=== PATIENT | male | born 1970 | race Caucasian/White ===

== ENCOUNTER 2016-03-28 01:09 | Emergency (ER) | payer OTHER ==
[~2016-03-28] VITALS: Ht 185.4 cm; Wt 84.1 kg
[2016-03-28 01:27] VITALS: TEMP 36.4; Ht 185.4 cm; Wt 84.1 kg
[2016-03-28] MEDS ORDERED: ONDANSETRON INJ 2 MG/ML 2 ML VIAL IV STA (01:55)
[2016-03-28] MEDS ORDERED: LIDOCAINE HCL 2% VISC SOLN 20 ML UDC PO STA (01:55)
[2016-03-28] MEDS ORDERED: SODIUM CHLORIDE 0.9% 1000ML 1,000 ML IV STA (01:55)
[2016-03-28] MEDS ORDERED: ALUMINUM/MAGNESIUM SUSP 30 ML UDC PO STA (01:55)
[2016-03-28] MEDS ORDERED: DEXAMETHASONE SOD INJ 10 MG/ML VIAL IV ONE (02:00)
[2016-03-28] MEDS ORDERED: OPTIRAY 320 IV PRN (02:15)
[2016-03-28 02:23] VITALS: O2SAT 99
[2016-03-28 02:23] LABS: BASO % 0.3 %; BASO ABS # 0.01 K/uL (0-0.2); COMPLETE YES; EOS % 6.9 %; HEMATOCRIT 39.3 % (42-52); IG% 0.3 %; LYMPH % 38.2 %; LYMPH ABS # 1.39 K/uL (1.2-3.4); MEAN CELL VOLUME 86.2 fL (80-100); MEAN CORPUSCULAR HEMOGLOBIN 31.1 pg (25-34); MEAN CORPUSCULAR HGB CONC 36.1 g/dl (32-36); MONO % 11.5 %; NEUT % 42.8 %; PLATELET COUNT 156 K/uL (130-400); RED BLOOD COUNT 4.56 M/uL (4.7-6.1); WHITE BLOOD COUNT 3.64 K/uL (4.8-10.8)
[2016-03-28 02:46] LABS: ALT/SGPT 24 U/L (12-78); AST/SGOT 16 U/L (15-37); BLOOD UREA NITROGEN 13 mg/dl (7-18); CALCIUM 8.2 mg/dl (8.5-10.1); CARBON DIOXIDE 25 mmol/L (21-32); CHLORIDE 106 mmol/L (98-107); CREATININE 0.79 mg/dl (0.60-1.40); GLUCOSE 98 mg/dl (70-99); POTASSIUM 3.8 mmol/L (3.5-5.1); SODIUM 141 mmol/L (136-145)
[2016-03-28 02:51] LABS: ALKALINE PHOSPHATASE 53 U/L (45-117); CKMB/CK RATIO 0.6 (0-3.0)
[2016-03-28] MEDS ORDERED: ALBUTEROL HFA 8 GM INHALER INH STA (04:29)
[2016-03-28 04:30] VITALS: BP 99/53; PULSE 54; O2SAT 96
[2016-03-28] MEDS ORDERED: AMOXICIL/CLAVU 875MG HOME PACK PO ONE (04:30)
[2016-03-28] MEDS ORDERED: AMOX875T PO (04:34)
[2016-03-28] MEDS ORDERED: PRED50TA PO (04:34)
--- NOTE | 2016-03-28 04:46 | EMERGENCY ROOM VISIT NOTE ---
History First contact with patient: 01:45 Chief Complaint: FLU LIKE SX Stated Complaint: FEVER,VOMITING,EXTREME THROAT PAIN,WEAK ETC History of Present Illness The patient is a 45 year old male who presents to the Emergency Room with complaints of sore throat, fever, chills, cough, congestion, sinus pain for the past week. Patient also complains of right wrist and hand pain and tingling for the past several months. Patient does not routinely see a doctor. He is worried that he has throat cancer as he smokes. His father had throat cancer. He wants to be checked for this. No temperature was taken. Patient is tolerating by mouth fluids and food. Patient denies headache, neck stiffness, abdominal pain, chest pain, dyspnea, vomiting, diarrhea, leg pain or swelling, numbness, tingling. Review of Systems See HPI for pertinent positives & negatives. A total of 10 systems reviewed and were otherwise negative. Past Medical/Surgical History none Social History Smoking Status: Current Every Day Smoker Alcohol Use: occasionally Drug Use: none Housing Status: lives with family Occupation Status: employed Current/Historical Medications Scheduled Amoxicillin & Pot Clavulanate (Augmentin 875-125 mg), 1 TAB PO BID Prednisone (Prednisone), 50 MG PO DAILY Allergies Coded Allergies: No Known Allergies (Unverified , 03/28/16) Physical Exam Vital Signs Date Time Temp Pulse Resp B/P Pulse Ox O2 Delivery O2 Flow Rate FiO2 03/28/16 04:30 54 18 99/53 96 Room Air 03/28/16 03:03 58 18 99/54 96 Room Air 03/28/16 02:23 99 Room Air 03/28/16 01:27 36.4 70 18 119/64 98 Room Air Physical Exam VITALS: Vitals are noted on the nurse's note and reviewed by myself. Vital signs stable. GENERAL: Pleasant male, in no acute distress, nondiaphoretic, well-developed well-nourished. SKIN: The skin was without rashes, erythema, edema, or bruising. There is no tenting of the skin. Capillary reflex less than 2 seconds. HEAD: Normocephalic atraumatic. EARS: External auditory canals clear, tympanic membranes pearly cheek without erythema or effusion bilaterally. EYES: Pupils equal round and reactive to light and accommodation. Conjunctivae without injection, sclerae without icterus. Extraocular movements intact. NOSE: Patent, turbinates without inflammation or discharge. Maxillary sinus tenderness. MOUTH: Mucous membranes moist. Pharynx without erythema or exudate. Uvula midline. Airway patent. Tongue does not deviate. NECK: Supple without nuchal rigidity. No lymphadenopathy. No thyromegaly. Cervical spine is nontender. No JVD. No meningeal signs HEART: Regular rate and rhythm without murmurs gallops or rubs. LUNGS: Clear to auscultation bilaterally without wheezes, rales or rhonchi. No dullness to percussion. No retractions or accessory muscle use. ABDOMEN: Positive bowel sounds x 4. Normal tympanic percussion. Soft, nontender, without masses or organomegaly. Serrano sign negative. No guarding or rebound tenderness. MUSCULOSKELETAL: No muscle atrophy, erythema, or edema noted. Right wrist with positive Tinel sign. Right wrist full range of motion. Right hand full range of motion with sensation intact. Radial pulses +2 equal present bilaterally NEURO: Patient was alert and oriented to person place and time. Normal sensation to light and sharp touch. No focal neurological deficits. Medical Decision & Procedures Laboratory Results 03/28/16 02:10 Red Blood Count 4.56, Mean Corpuscular Volume 86.2, Mean Corpuscular Hemoglobin 31.1, Mean Corpuscular Hemoglobin Concent 36.1, Mean Platelet Volume 11.0, Neutrophils (%) (Auto) 42.8, Lymphocytes (%) (Auto) 38.2, Monocytes (%) (Auto) 11.5, Eosinophils (%) (Auto) 6.9, Basophils (%) (Auto) 0.3, Neutrophils # (Auto ) 1.56, Lymphocytes # (Auto) 1.39, Monocytes # (Auto) 0.42, Eosinophils # (Auto ) 0.25, Basophils # (Auto) 0.01 03/28/16 02:10 Test 03/28/16 01:50 03/28/16 02:10 Influenza Type A Antigen Neg for Influ A (NEG) Influenza Type B Antigen Neg for Influ B (NEG) White Blood Count 3.64 K/uL (4.8-10.8) Red Blood Count 4.56 M/uL (4.7-6.1) Hemoglobin 14.2 g/dL (14.0-18.0) Hematocrit 39.3 % (42-52) Mean Corpuscular Volume 86.2 fL (80-100) Mean Corpuscular Hemoglobin 31.1 pg (25-34) Mean Corpuscular Hemoglobin Concent 36.1 g/dl (32-36) Platelet Count 156 K/uL (130-400) Mean Platelet Volume 11.0 fL (7.4-10.4) Neutrophils (%) (Auto) 42.8 % Lymphocytes (%) (Auto) 38.2 % Monocytes (%) (Auto) 11.5 % Eosinophils (%) (Auto) 6.9 % Basophils (%) (Auto) 0.3 % Neutrophils # (Auto) 1.56 K/uL (1.4-6.5) Lymphocytes # (Auto) 1.39 K/uL (1.2-3.4) Monocytes # (Auto) 0.42 K/uL (0.11-0.59) Eosinophils # (Auto) 0.25 K/uL (0-0.5) Basophils # (Auto) 0.01 K/uL (0-0.2) RDW Standard Deviation 42.2 fL (36.4-46.3) RDW Coefficient of Variation 13.3 % (11.5-14.5) Immature Granulocyte % (Auto) 0.3 % Immature Granulocyte # (Auto) 0.01 K/uL (0.00-0.02) Anion Gap 10.0 mmol/L (3-11) Est Creatinine Clear Calc Drug Dose 132.0 ml/min Estimated GFR () 124.8 Estimated GFR (Non- 107.7 BUN/Creatinine Ratio 17.0 (10-20) Calcium Level 8.2 mg/dl (8.5-10.1) Total Bilirubin 0.3 mg/dl (0.2-1) Direct Bilirubin < 0.1 mg/dl (0-0.2) Aspartate Amino Transf (AST/SGOT) 16 U/L (15-37) Alanine Aminotransferase (ALT/SGPT) 24 U/L (12-78) Alkaline Phosphatase 53 U/L (45-117) Total Creatine Kinase 103 U/L (39-308) Creatine Kinase MB 0.6 ng/ml (0.5-3.6) Creatine Kinase MB Ratio 0.6 (0-3.0) Troponin I < 0.015 ng/ml (0-0.045) Total Protein 6.5 gm/dl (6.4-8.2) Albumin 3.8 gm/dl (3.4-5.0) Lipase 52 U/L (73-393) Medications Administered Medications (Trade) Dose Ordered Sig/Lauri Route Start Time Stop Time Status Last Admin Dose Admin Lidocaine HCl (Viscous Lidocaine 2% Soln) 10 ml NOW STAT PO 03/28/16 01:55 03/28/16 01:58 DC 03/28/16 02:18 10 ML Al Hydroxide/Mg Hydroxide 30 ml 30 ml NOW STAT PO 03/28/16 01:55 03/28/16 01:58 DC 03/28/16 02:17 30 ML Sodium Chloride (Nss 1000ml) 1,000 ml @ 999 mls/hr Q1H1M STAT IV 03/28/16 01:55 03/28/16 02:55 DC 03/28/16 02:17 999 MLS/HR Ondansetron HCl (Zofran Inj) 4 mg NOW STAT IV 03/28/16 01:55 03/28/16 01:58 DC 03/28/16 02:17 4 MG Dexamethasone Sodium Phosphate (Decadron Inj) 10 mg NOW ONCE IV 03/28/16 02:00 03/28/16 02:01 DC 03/28/16 02:17 10 MG ED Course Prior records/ancillary studies reviewed. Triage Nursing notes reviewed. Additional history obtained from family. The patient's history was concerning for a sore throat. Differential diagnosis: Etiologies such as viral syndrome, tonsillitis, streptococcal pharyngitis, mononucleosis, peritonsillar abscess, retropharyngeal abscess, otitis, pneumonia , influenza, as well as others were entertained. ER treatment provided: GI cocktail, Augmentin, albuterol On reassessment the patient felt better. Diagnostics interpreted by me: The labs revealed no worrisome leukocytosis or electrolyte abnormality Imaging studies: Chest x-ray with no acute consolidation or pneumothorax or free air per my interpretation CT of the neck was read by stat radiology and concerning for sinusitis. Patient was placed in a wrist cock-up splint and neurovascular status was rechecked after placement and is intact. This appears to be consistent with sinusitis and right carpal tunnel syndrome. Patient had no signs of meningitis. He was well-appearing. Negative flu. He was strongly encouraged to quit smoking. He is advised follow-up family medicine in a few days or here in the ER sooner for high fevers, lethargy, neck stiffness, worsening signs or symptoms or as needed. He had a negative strep test. He was started on antibiotics.. By the evaluation outlined above emergent etiologies such as peritonsillar abscess, retropharyngeal abscess, otitis, pneumonia, meningitis, urinary tract infection, sepsis, bacteremia, as well as others were deemed relatively unlikely. The pt informed about the findings as listed above. All questions were answered and pleased with the treatment. Return instructions were outlined and the patient was discharged in stable condition. Outpatient prescription management: Augmentin Referral: The patient was referred back to their primary care physician for follow-up in 2 to 3 days for a recheck of the current condition. Case reviewed by attending Medical Decision As above Impression Primary Impression: Sinusitis, acute Additional Impression: Carpal tunnel syndrome of right wrist Departure Information Dispostion Home / Self-Care Condition GOOD Prescriptions Prednisone (Prednisone) 50 Mg Tab 50 MG PO DAILY for 4 Days, #4 TAB Prov: Lisa Maria .TEJ 03/28/16 Amoxicillin & Pot Clavulanate (Augmentin 875-125 mg) 1 Tab Tab 1 TAB PO BID for 9 Days, #18 TAB Prov: Lisa Maria PA-C 03/28/16 Forms HOME CARE DOCUMENTATION FORM, Work Instructions, Return To Work: 2 days IMPORTANT VISIT INFORMATION Patient Instructions [facility], ED Carpal Tunnel, ED Sinusitis Abx Tx Additional Instructions Amoxicillin Clavulanate (Augmentin) 875mg: Take one pill twice daily for 10 days for your infection. All antibiotics can cause diarrhea. If this occurs and you feel worse or it does not resolve in 1-2 days follow up with your doctor or return to the Emergency Department as this could be signs of serious underlying problems. Any medication can cause an allergic reaction, stop the pills immediately and return to the ER for rash, hives, breathing difficulties, or swelling. Albuterol Inhaler: Take 2 puffs four times daily for five days, then as needed. Prednisone 50mg: Once daily until the prescription is finished. It is best to take this earlier in the day as some patients note occasional difficulty falling asleep when taken in the late evening. Wear wrist cock-up splint for comfort. Acetaminophen(Tylenol) may be used for fever or pain. Use 1000mg every six hours as needed. Avoid using more than 3000mg in a 24 hour period. (AND/OR) Ibuprofen(Motrin, Advil) may be used for fever or pain. Use 600mg every six hours as needed. Take with food. Avoid using more than 2400mg in a 24 hour period. Do not use 2400mg per day for more than three consecutive days without physician direction. Prolonged inappropriate use can lead to stomach upset or ulcers. Rest and drink plenty of fluids. Avoid smoke/smoking, fumes, dust, or any triggers in the past that may have affected your breathing. Continue current medications. Return to the ER for chest pain, difficulty breathing, fevers, vomiting, worsening of your condition, or as needed. Follow up with your primary physician this week for a recheck of your current condition. Work Instructions Return To Work: 2 days Problem Qualifiers Primary Impression: Sinusitis, acute Sinusitis location: maxillary Recurrence: non-recurrent Qualified Codes: J01.00 - Acute maxillary sinusitis, unspecified
--- NOTE | 2016-03-28 08:43 | DIAGNOSTIC IMAGING REPORT ---
CT SCAN OF THE NECK WITH IV CONTRAST CLINICAL HISTORY: Dysphagia. Reported family history of throat cancer. COMPARISON STUDY: No priors. TECHNIQUE: Following the IV administration of 94 cc of Optiray 320, CT scan of the soft tissues of the neck was performed from the skull base to the upper chest. Images are reviewed in the axial, sagittal, and coronal planes. IV contrast was administered without complication. CT DOSE: 663.97 mGy.cm FINDINGS: Pharynx: There is mild thickening and edema involving the soft tissues of the laryngopharynx. The oropharynx and nasopharynx are normal in appearance. The pharyngeal airway is patent. There is no clear evidence of mass lesion. The vocal cords are symmetric. The parapharyngeal fat is preserved. No organized fluid collection is seen to indicate abscess. The prevertebral/retropharyngeal soft tissues are within normal limits. The epiglottis is normal. Numerous calcified tonsilliths are identified. Lymphadenopathy: There are shotty cervical lymph nodes. These are not pathologically enlarged by size criteria. Thyroid: Normal in size and attenuation. Salivary glands: The parotid and submandibular glands are within normal limits. Brain parenchyma: The visualized brain parenchyma at the skull base is normal in appearance. Vascular structures: The internal carotid arteries and jugular veins are widely patent. Skeletal structures: Imaged portions of the calvarium at the skull base are within normal limits. The cervical spine appears intact noting mild spondylotic change.. Orbits: The bony orbits are intact. Orbital contents are normal as visualized. Sinuses and mastoids: There is near complete opacification of the ethmoid sinuses. Moderate mucosal thickening is seen within the frontal and maxillary sinuses. Trace mucosal thickening is seen in the sphenoid sinuses. The mastoid air cells are well pneumatized. Dentition: Scattered dental caries are observed. No large periapical lucencies are identified. Lung apices: Emphysema is noted at the lung apices. There is mild apical scarring. The imaged upper lobe lung parenchyma is otherwise clear. Mild peribronchial thickening is observed. IMPRESSION: 1. There is mild edema and thickening of the soft tissues in the laryngopharynx. This is nonspecific and likely represents a mild pharyngitis. Consider follow-up with Otolaryngology if this fails to resolve given the reported family history of throat cancer. 2. There is no organized fluid collection to suggest abscess. The parapharyngeal fat is well maintained. 3. There are shotty cervical lymph nodes which are not pathologically enlarged by size criteria. 4. Emphysema. 5. Significant paranasal sinus disease as above. 6. There are scattered dental caries. Follow-up with dentistry is recommended. Electronically signed by: Denis Chase M.D. 03/28/2016 8:41 AM Dictated Date/Time: 03/28/2016 8:26 AM
--- NOTE | 2016-03-28 09:56 | DIAGNOSTIC IMAGING REPORT ---
SINGLE VIEW CHEST CLINICAL HISTORY: Atypical chest pain. FINDINGS: An AP, portable, upright chest radiograph is obtained. No prior studies are available for comparison at the time of dictation. The examination is degraded by portable technique and patient rotation. The heart appears mildly enlarged. There is examined change and nonspecific interstitial thickening. No airspace consolidation or pleural effusion is identified. No pneumothorax is seen. The bony thorax is grossly intact. IMPRESSION: Mild cardiac enlargement and emphysema. No acute cardiopulmonary abnormality is seen. Electronically signed by: Denis Chase M.D. 03/28/2016 9:54 AM Dictated Date/Time: 03/28/2016 9:53 AM
== END 2016-03-28 04:44 | disposition home or self-care (01) ==
LOC: C.EDB 01:12 → C.EDC 04:44
DX: J01.90 Acute sinusitis, unspecified (principal); G56.01 Carpal tunnel syndrome, right upper limb; F17.200 Nicotine dependence, unspecified, uncomplicated

== ENCOUNTER 2017-04-03 22:12 | Emergency (ER) | payer SELFPAY ==
[~2017-04-03] VITALS: Ht 185.4 cm; Wt 76.8 kg
[2017-04-03 22:29] VITALS: BP 115/71; PULSE 84; TEMP 36.8; O2SAT 97; Ht 185.4 cm; Wt 76.8 kg
== END 2017-04-03 22:40 | disposition left against medical advice (07) ==
LOC: C.EDB 22:13

== ENCOUNTER 2017-04-07 12:00 | Emergency (ER) | payer OTHER ==
[~2017-04-07] VITALS: Ht 185.4 cm; Wt 76.2 kg
[2017-04-07 12:06] VITALS: TEMP 36.6; Ht 185.4 cm; Wt 76.2 kg
[2017-04-07] MEDS ORDERED: SODIUM CHLORIDE 0.9% 1000ML 1,000 ML IV STA (12:31)
--- NOTE | 2017-04-07 12:38 | EMERGENCY ROOM VISIT NOTE ---
History Report prepared by Lyn: Toñito Pham Under the Supervision of: Dr. Matt Talamantes M.D. First contact with patient: 12:28 Chief Complaint: GROIN PAIN Stated Complaint: PAIN IN GROIN, DOWN LEGS, BLOOD IN STOOL History of Present Illness The patient is a 46 year old male who presents to the Emergency Room with complaints of sharp intermittent groin pain that has been present for the past 4 weeks. He denies pain in his testicles currently but states that they are swollen. He states that this pain radiates into his lower extremities. He denies fevers, chills, cough, congestion, nausea, vomiting, diarrhea, dysuria, and hematuria. He states he has had blood in his stool a few days ago but is now resolved. He denies previous episodes and states he does not have a PCP. Source of History: patient Onset: 4 weeks Position: other (groin ) Quality: sharp Timing: intermittent Associated Symptoms: No fevers, No chills, No cough, No nausea, No vomiting , No diarrhea, No urinary symptoms Review of Systems See HPI for pertinent positives and negatives. A total of ten systems were reviewed and were otherwise negative. 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 Oropharynx unremarkable. EYES: Normal conjunctiva. Sclera non-icteric. NECK: Supple. No nuchal rigidity. FROM. No JVD. RESPIRATORY: Clear to auscultation. CARDIAC: Regular rate, normal rhythm. Extremities warm and well perfused. Pulses equal. ABDOMEN: Soft, non-distended. No tenderness to palpation. No rebound or guarding. No masses. RECTAL: No hemorrhoids. No stool or blood. No significant prostate enlargement. : Normal external genitalia. No ttp. Cremasteric reflex intact. MUSCULOSKELETAL: Chest examination reveals no tenderness. The back is symmetrical on inspection without obvious abnormality. There is no CVA tenderness to palpation. No joint edema. LOWER EXTREMITIES: Calves are equal size bilaterally and non-tender. No edema. No discoloration. NEURO: Normal sensorium. No sensory or motor deficits noted. SKIN: No rash or jaundice noted. Medical Decision & Procedures ER Provider Diagnostic Interpretation: Radiology results as stated below per my review and radiologist interpretation: CT SCAN OF THE ABDOMEN AND PELVIS WITH IV CONTRAST CLINICAL HISTORY: Lower abdominal pain. COMPARISON STUDY: No priors. TECHNIQUE: Following the IV administration of 119 cc of Optiray 320, CT scan of the abdomen and pelvis is performed from the lung bases to the proximal femora. Images are reviewed in the axial, sagittal, and coronal planes. IV contrast was administered without complication. A dose lowering technique was utilized adhering to the principles of ALARA. CT DOSE: 482.00 mGycm FINDINGS: Lung bases: The heart is normal in size and without pericardial effusion. Atelectasis is present in the medial segment of the right middle lobe. A fat-containing Bochdalek hernia is seen at the right lung base. There is a small fat-containing Morgagni hernia suggested at the anterior right lung base. The lung bases are otherwise clear. Liver: The contrast-enhanced liver is normal in size, contour, and attenuation. There is no intrahepatic biliary ductal dilatation. The hepatic veins and portal veins are patent. Gallbladder: Unremarkable. Spleen: Normal in size and attenuation. Pancreas: Unremarkable. Adrenal glands: Unremarkable. Kidneys: The contrast enhanced kidneys are normal in size and without hydronephrosis. The kidneys enhance symmetrically. There are numerous small bilateral nonobstructing renal calculi. Abdominal vasculature: The abdominal aorta is normal in course and caliber noting mild atherosclerotic calcification. Bowel: Mild rectal wall thickening suggested. No bowel obstruction is seen. The appendix is not identified and reported surgically absent. Peritoneum: There is no intraperitoneal free air or abdominal ascites. Lymphadenopathy: None. Pelvic viscera: The bladder, prostate, and seminal vesicles are normal as visualized. Skeletal structures: No lytic or blastic lesions are seen. IMPRESSION: 1. Mild rectal wall thickening and edema is suggested. Correlate clinically for evidence of proctitis. 2. There are numerous bilateral nonobstructing renal calculi. 3. Additional findings as above. Electronically signed by: Denis Chase M.D. 04/07/2017 2:21 PM Dictated Date/Time: 04/07/2017 2:15 PM ULTRASOUND TESTES AND SCROTUM CLINICAL HISTORY: Right scrotal pain. COMPARISON STUDY: No priors. TECHNIQUE: Real-time, grayscale, and color Doppler sonography of the testes and scrotum is performed. Images are reviewed in the transverse and longitudinal planes. FINDINGS: The testes are normal in size and homogeneous in echotexture. The right testis measures 4.8 x 2.5 x 3.3 cm and the left testis measures 4.1 x 2.6 x 2.6 cm. No intratesticular mass is seen. Testicular blood flow is normal and symmetric. Normal Doppler waveforms are identified in both testes. The epididymal heads are normal in appearance. The right epididymal head measures 1.1 cm in length and the left epididymal head measures 1.6 cm in length. There are subcentimeter bilateral epididymal head cysts. There are small bilateral varicoceles. Small bilateral hydroceles are also noted. IMPRESSION: 1. Unremarkable sonographic appearance of the testes. 2. Small bilateral hydroceles are noted. 3. There are small bilateral varicoceles. Electronically signed by: Denis Chase M.D. 04/07/2017 3:20 PM Dictated Date/Time: 04/07/2017 3:19 PM Laboratory Results 04/07/17 12:56 Red Blood Count 4.74, Mean Corpuscular Volume 88.8, Mean Corpuscular Hemoglobin 31.2, Mean Corpuscular Hemoglobin Concent 35.2, Mean Platelet Volume 10.2, Neutrophils (%) (Auto) 50.7, Lymphocytes (%) (Auto) 37.2, Monocytes (%) (Auto) 6.7, Eosinophils (%) (Auto) 4.8, Basophils (%) (Auto) 0.3, Neutrophils # (Auto) 3.49, Lymphocytes # (Auto) 2.56, Monocytes # (Auto) 0.46, Eosinophils # (Auto) 0.33, Basophils # (Auto) 0.02 04/07/17 12:56 Test 04/07/17 12:56 04/07/17 13:00 White Blood Count 6.88 K/uL (4.8-10.8) Red Blood Count 4.74 M/uL (4.7-6.1) Hemoglobin 14.8 g/dL (14.0-18.0) Hematocrit 42.1 % (42-52) Mean Corpuscular Volume 88.8 fL (80-100) Mean Corpuscular Hemoglobin 31.2 pg (25-34) Mean Corpuscular Hemoglobin Concent 35.2 g/dl (32-36) Platelet Count 240 K/uL (130-400) Mean Platelet Volume 10.2 fL (7.4-10.4) Neutrophils (%) (Auto) 50.7 % Lymphocytes (%) (Auto) 37.2 % Monocytes (%) (Auto) 6.7 % Eosinophils (%) (Auto) 4.8 % Basophils (%) (Auto) 0.3 % Neutrophils # (Auto) 3.49 K/uL (1.4-6.5) Lymphocytes # (Auto) 2.56 K/uL (1.2-3.4) Monocytes # (Auto) 0.46 K/uL (0.11-0.59) Eosinophils # (Auto) 0.33 K/uL (0-0.5) Basophils # (Auto) 0.02 K/uL (0-0.2) RDW Standard Deviation 44.1 fL (36.4-46.3) RDW Coefficient of Variation 13.5 % (11.5-14.5) Immature Granulocyte % (Auto) 0.3 % Immature Granulocyte # (Auto) 0.02 K/uL (0.00-0.02) Anion Gap 4.0 mmol/L (3-11) Est Creatinine Clear Calc Drug Dose 113.1 ml/min Estimated GFR () 119.1 Estimated GFR (Non- 102.8 BUN/Creatinine Ratio 18.7 (10-20) Calcium Level 9.1 mg/dl (8.5-10.1) Total Bilirubin 0.4 mg/dl (0.2-1) Direct Bilirubin < 0.1 mg/dl (0-0.2) Aspartate Amino Transf (AST/SGOT) 18 U/L (15-37) Alanine Aminotransferase (ALT/SGPT) 29 U/L (12-78) Alkaline Phosphatase 58 U/L (45-117) Total Protein 7.4 gm/dl (6.4-8.2) Albumin 4.0 gm/dl (3.4-5.0) Lipase 75 U/L (73-393) Urine Color YELLOW Urine Appearance CLEAR (CLEAR) Urine pH 5.0 (4.5-7.5) Urine Specific [place] 1.027 (1.000-1.030) Urine Protein NEG (NEG) Urine Glucose (UA) NEG (NEG) Urine Ketones NEG (NEG) Urine Occult Blood NEG (NEG) Urine Nitrite NEG (NEG) Urine Bilirubin NEG (NEG) Urine Urobilinogen NEG (NEG) Urine Leukocyte Esterase NEG (NEG) Laboratory results reviewed by me Medications Administered Medications (Trade) Dose Ordered Sig/Lauri Route Start Time Stop Time Status Last Admin Dose Admin Sodium Chloride 1,000 ml @ 999 mls/hr Q1H1M STAT IV 04/07/17 12:31 04/07/17 13:31 DC 04/07/17 12:31 999 MLS/HR ED Course 1228: The patient was evaluated in room B11B. A complete history and physical exam was performed. 1630: I reevaluated the patient. Discussed results and discharge instructions: He verbalized understanding and agreement. The patient is ready for discharge. Medical Decision I reviewed the patient's past medical history, medications, and the nursing notes as described above. The patient's presentation and history were concerning for etiologies such as appendicitis, diverticulitis, PUD, biliary pathology, UTI, pancreatitis, obstruction, mesenteric ischemia, aortic pathology, infections, inflammatory bowel disease, renal colic, testicular torsion, epididymitis as well as others were entertained. The patient is a 46-year-old gentleman who does not follow regularly with a medical provider presents emergency Department with complaints of intermittent lower abdominal pain and testicular pain for the past 4 weeks and scant blood per rectum several days prior to arrival per [facility]. On arrival the patient is in no acute distress, afebrile stable vital signs. exam unremarkable. No ttp. Cremasteric reflex intact. Rectal exam with no stool or blood. Labs unremarkable including WBC and CMP within normal limits. UA negative. Testicular ultrasound demonstrating bilateral small hydroceles and varicoceles but otherwise no evidence of infection. CT scan demonstrates findings suspicious for proctitis. Given the patient's recent blood per rectum and vague lower abdominal complaints proctitis is likely. Given that the patient does not appear particularly uncomfortable plan for symptomatic treatment with stool softener and GI follow-up. Patient also encouraged to establish care with a PCP. Findings and plan for follow-up reviewed with patient. Patient agreeable and d/c'd per discharge instructions. Medication Reconcilliation Current Medication List: was personally reviewed by me Blood Pressure Screening Patient's blood pressure: Normal blood pressure Blood pressure disposition: Did not require urgent referral Impression Primary Impression: Proctitis Additional Impressions: Hydrocele, bilateral Bilateral varicoceles Scribe Attestation The scribe's documentation has been prepared under my direction and personally reviewed by me in its entirety. I confirm that the note above accurately reflects all work, treatment, procedures, and medical decision making performed by me. Departure Information Dispostion Home / Self-Care Prescriptions Docusate Sodium (COLACE) 100 Mg Cap 1 CAP PO BID for 15 Days, #30 CAP Prov: Matt Talamantes M.D. 04/07/17 Referrals No Doctor, Assigned (PCP) Jessica Herring, DO Patient Instructions Bleeding Rectal, ED Colitis Ulcerative, ED Hydrocele Type Not Specified, ED Varicocele, My [facility] Additional Instructions Please follow up with and establish care with a primary care physician and also follow up with gastroenterology, Dr. Herring, in the next week for re-evaluation. Your symptoms are most likely due to a proctitis. You also were found to have bilateral testicular hydroceles and varicoceles, which can sometimes cause pain. Where supportive underwear to minimize these symptoms. Otherwise, your exam, lab results, testicular ultrasound, and CT scan did not show signs of an emergent condition at this time. Acetaminophen for pain as needed. Colace for stool softening to minimize pain. Drink plenty of fluids to ensure hydration. Return to the emergency department for worsening symptoms as described in the accompanying instructions. Problem Qualifiers
[2017-04-07] MEDS ORDERED: OPTIRAY 320 IV PRN ×2 (12:45)
[2017-04-07 13:06] LABS: BASO % 0.3 %; BASO ABS # 0.02 K/uL (0-0.2); EOS % 4.8 %; EOS ABS # 0.33 K/uL (0-0.5); HEMATOCRIT 42.1 % (42-52); HEMOGLOBIN 14.8 g/dL (14.0-18.0); IG# 0.02 K/uL (0.00-0.02); LYMPH % 37.2 %; LYMPH ABS # 2.56 K/uL (1.2-3.4); MEAN CELL VOLUME 88.8 fL (80-100); MEAN CORPUSCULAR HEMOGLOBIN 31.2 pg (25-34); MEAN CORPUSCULAR HGB CONC 35.2 g/dl (32-36); MEAN PLATELET VOLUME 10.2 fL (7.4-10.4); MONO % 6.7 %; MONO ABS # 0.46 K/uL (0.11-0.59); NEUT % 50.7 %; NEUT ABS # 3.49 K/uL (1.4-6.5); PLATELET COUNT 240 K/uL (130-400); RED CELL DISTRIBUTION WIDTH CV 13.5 % (11.5-14.5); RED CELL DISTRIBUTION WIDTH SD 44.1 fL (36.4-46.3); WHITE BLOOD COUNT 6.88 K/uL (4.8-10.8)
[2017-04-07 13:27] LABS: ALT/SGPT 29 U/L (12-78); AST/SGOT 18 U/L (15-37); BLOOD UREA NITROGEN 16 mg/dl (7-18); CALCIUM 9.1 mg/dl (8.5-10.1); CARBON DIOXIDE 28 mmol/L (21-32); CREATININE 0.87 mg/dl (0.60-1.40); GLUCOSE 90 mg/dl (70-99); LIPASE 75 U/L (73-393); POTASSIUM 3.9 mmol/L (3.5-5.1); SODIUM 137 mmol/L (136-145)
[2017-04-07 13:29] LABS: ALKALINE PHOSPHATASE 58 U/L (45-117); TOTAL PROTEIN 7.4 gm/dl (6.4-8.2)
--- NOTE | 2017-04-07 14:23 | DIAGNOSTIC IMAGING REPORT ---
CT SCAN OF THE ABDOMEN AND PELVIS WITH IV CONTRAST CLINICAL HISTORY: Lower abdominal pain. COMPARISON STUDY: No priors. TECHNIQUE: Following the IV administration of 119 cc of Optiray 320, CT scan of the abdomen and pelvis is performed from the lung bases to the proximal femora. Images are reviewed in the axial, sagittal, and coronal planes. IV contrast was administered without complication. A dose lowering technique was utilized adhering to the principles of ALARA. CT DOSE: 482.00 mGycm FINDINGS: Lung bases: The heart is normal in size and without pericardial effusion. Atelectasis is present in the medial segment of the right middle lobe. A fat-containing Bochdalek hernia is seen at the right lung base. There is a small fat-containing Morgagni hernia suggested at the anterior right lung base. The lung bases are otherwise clear. Liver: The contrast-enhanced liver is normal in size, contour, and attenuation. There is no intrahepatic biliary ductal dilatation. The hepatic veins and portal veins are patent. Gallbladder: Unremarkable. Spleen: Normal in size and attenuation. Pancreas: Unremarkable. Adrenal glands: Unremarkable. Kidneys: The contrast enhanced kidneys are normal in size and without hydronephrosis. The kidneys enhance symmetrically. There are numerous small bilateral nonobstructing renal calculi. Abdominal vasculature: The abdominal aorta is normal in course and caliber noting mild atherosclerotic calcification. Bowel: Mild rectal wall thickening suggested. No bowel obstruction is seen. The appendix is not identified and reported surgically absent. Peritoneum: There is no intraperitoneal free air or abdominal ascites. Lymphadenopathy: None. Pelvic viscera: The bladder, prostate, and seminal vesicles are normal as visualized. Skeletal structures: No lytic or blastic lesions are seen. IMPRESSION: 1. Mild rectal wall thickening and edema is suggested. Correlate clinically for evidence of proctitis. 2. There are numerous bilateral nonobstructing renal calculi. 3. Additional findings as above. Electronically signed by: Denis Chase M.D. 04/07/2017 2:21 PM Dictated Date/Time: 04/07/2017 2:15 PM
--- NOTE | 2017-04-07 15:22 | DIAGNOSTIC IMAGING REPORT ---
ULTRASOUND TESTES AND SCROTUM CLINICAL HISTORY: Right scrotal pain. COMPARISON STUDY: No priors. TECHNIQUE: Real-time, grayscale, and color Doppler sonography of the testes and scrotum is performed. Images are reviewed in the transverse and longitudinal planes. FINDINGS: The testes are normal in size and homogeneous in echotexture. The right testis measures 4.8 x 2.5 x 3.3 cm and the left testis measures 4.1 x 2.6 x 2.6 cm. No intratesticular mass is seen. Testicular blood flow is normal and symmetric. Normal Doppler waveforms are identified in both testes. The epididymal heads are normal in appearance. The right epididymal head measures 1.1 cm in length and the left epididymal head measures 1.6 cm in length. There are subcentimeter bilateral epididymal head cysts. There are small bilateral varicoceles. Small bilateral hydroceles are also noted. IMPRESSION: 1. Unremarkable sonographic appearance of the testes. 2. Small bilateral hydroceles are noted. 3. There are small bilateral varicoceles. Electronically signed by: Denis Chase M.D. 04/07/2017 3:20 PM Dictated Date/Time: 04/07/2017 3:19 PM
[2017-04-07] MEDS ORDERED: DOCU-94 PO (16:39)
[2017-04-07 16:50] VITALS: BP 117/69; PULSE 62; O2SAT 98
== END 2017-04-07 17:00 | disposition home or self-care (01) ==
LOC: C.EDB 12:02
DX: K62.89 Other specified diseases of anus and rectum (principal); N43.3 Hydrocele, unspecified; I86.1 Scrotal varices; F17.200 Nicotine dependence, unspecified, uncomplicated

== ENCOUNTER 2018-08-26 19:58 | Inpatient (IN) ==
[2018-08-26] MEDS ORDERED: SODIUM CHLORIDE 0.9% 1000ML 1,000 ML IV SCH (21:15)
[2018-08-26 21:28] LABS: Basophils # (auto) 0.02 K/uL (0-0.2); Basophils % (auto) 0.3 %; Eosinophils % (auto) 2.9 %; Hematocrit (blood only) 41.9 % (42-52); Hemoglobin 15.2 g/dL (14.0-18.0); Immature Granulocytes # (auto) 0.01 K/uL (0.00-0.02); Immature Granulocytes % (auto) 0.1 %; Lymphocytes # (auto) 2.48 K/uL (1.2-3.4); Lymphocytes % (auto) 36.1 %; Mean Corpuscular Hgb Conc 36.3 g/dL (32-36); Mean Corpuscular Volume 87.5 fL (80-100); Mean Platelet Volume 10.3 fL (7.4-10.4); Monocytes # (auto) 0.72 K/uL (0.11-0.59); Monocytes % (auto) 10.5 %; Neutrophils # (auto) 3.44 K/uL (1.4-6.5); Neutrophils % (auto) 50.1 %; Platelet Count 242 K/uL (130-400); RDW Coefficient of Variation 13.2 % (11.5-14.5); RDW Standard Deviation 42.6 fL (36.4-46.3); Red Blood Count 4.79 M/uL (4.7-6.1); White Blood Count 6.87 K/uL (4.8-10.8)
[2018-08-26 21:44] LABS: Albumin Level 4.1 gm/dl (3.4-5.0); BUN Creatinine Ratio 8.9 (10-20); Calcium 9.2 mg/dl (8.5-10.1); Creatinine Clr Calc Pharmacy 94.2 ml/min; Est GFR (African American) 102.7; Est GFR (Non-African American) 88.6; Potassium 3.2 mmol/L (3.5-5.1)
[2018-08-26 21:54] LABS: Albumin Globulin Ratio 1.2 (0.9-2); Bilirubin,Total 0.7 mg/dl (0.2-1); Globulin 3.5 gm/dl (2.5-4.0); Total Protein 7.6 gm/dl (6.4-8.2)
[2018-08-26 21:56] LABS: Acetaminophen < 2 ug/ml (10-30)
[2018-08-26 21:57] LABS: Salicylate 4.1 mg/dl (2.8-20)
[2018-08-26 22:47] LABS: Appearance Urine Clear (Clear); Bilirubin Urine Negative (Negative); Blood Urine Negative (Negative); Color Urine Dark Yellow; Glucose Urine UA Negative (Negative); Ketones Urine Trace (Negative); Leukocyte Esterase Urine Negative (Negative); Nitrite Urine Negative (Negative); Protein Urine Negative (Negative); Specific Gravity Urine 1.024 (1.000-1.030); Urobilinogen Urine Negative (Negative); pH Urine 5.5 (4.5-7.5)
[2018-08-26 23:14] LABS: Amphetamines+Metham, Urine Neg (Neg); Barbiturates, Urine Neg (Neg); Benzodiazepine, Urine Neg (Neg); Cocaine, Urine Neg (Neg); MDMA (Ecstacy), Urine Neg (Neg); Methadone, Urine Neg (Neg); Opiate, Urine Neg (Neg); Phencyclidine, Urine Neg (Neg)
[2018-08-26] MEDS ORDERED: NICOTINE 21 MG/24 HR TDSY TD ONE (23:38)
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
--- NOTE | 2018-08-27 00:28 | Emergency Department Note ---
ED Visit Note This case was signed out to me at change of shift awaiting bed placement. 302 paperwork was signed. The patient has been accepted to 3 [address]. .
[2018-08-27] MEDS ORDERED: SODIUM CHLORIDE 0.65% NA SOLN 45 ML (OCEAN) PRN (01:14)
[2018-08-27] MEDS ORDERED: ACETAMINOPHEN 325 MG TAB PO PRN (01:14)
[2018-08-27] MEDS ORDERED: MAGNESIUM HYDROXIDE SUSP 30 ML UDC PO PRN (01:14)
[2018-08-27] MEDS ORDERED: BISMUTH SUBSALICYLATE PER ML OMNICELL CHARGE PO PRN (01:14)
[2018-08-27] MEDS ORDERED: ALUMINUM/MAGNESIUM SUSP 30 ML UDC PO PRN (01:14)
[2018-08-27] MEDS ORDERED: NICOTINE POLACRILEX 2 MG GUM MT PRN (01:14)
[2018-08-27] MEDS ORDERED: VENLAFAXINE HCL XR 75 MG CAPXR PO SCH (09:00)
[2018-08-27] MEDS: NICOTINE 21 MG/24 HR TDSY TD SCH (09:05)
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
[2018-08-27] MEDS ORDERED: NICOTINE 21 MG/24 HR TDSY TD ONE (23:32)
[2018-08-28 07:25] LABS: BUN Creatinine Ratio 13.4 (10-20); Calcium 8.5 mg/dl (8.5-10.1); Creatinine Clr Calc Pharmacy 101.8 ml/min; Est GFR (African American) 116.6; Est GFR (Non-African American) 100.6; Potassium 3.9 mmol/L (3.5-5.1)
[2018-08-28] MEDS: NICOTINE 21 MG/24 HR TDSY TD SCH (08:44)
[2018-08-28] MEDS: SERTRALINE HCL 50 MG TABLET PO SCH (08:44)
--- NOTE | 2018-08-28 12:31 | Psychiatric Progress Note ---
Date of Service August 28, 2018 Impression / Recommendations Impression Don is a 47-year-old gentleman without prior psychiatric history who presented on a 302 involuntary admission after making suicidal threats to family which he does not directly endorse at time of psychiatric admission but does acknowledge times of passive wish, suicidal fantasy, and significant psychosocial stressors. Pertinently financial strain has been severe but does sound recently improving. Marital discord and recent separation likely also contributing to acute emotional decompensation. Chronically he is likely under rested and overworked contributing to worsening irritability and fatigue. Following initiation of Effexor earlier this week he felt more anxious and he may benefit from a less activating antidepressant. Here he has been converted from Effexor to sertraline he is responding very positively to therapeutic milieu and programming. Diagnosis: MDD, single episode, severe, without psychosis, with anxious distress; cannabis use disorder (1) Depression with suicidal ideation: Patient was admitted on a 302 involuntary commitment. He is now accepting of care. He will be maintained on suicide checks and expected to participate in unit programming as appropriate Psychoeducation provided to patient regarding effects of chronic and introduced of stress notion that he will likely need to find a better balance, particularly as he is aging and hopefully he will be accepting of outpatient psychotherapy referral Presently patient is denying active or ongoing suicidal ideation or intent and able to convincingly contract for safety on the unit. He does have a history of suicide attempts as a young child and more recent suicidal fantasy without acts of furtherance. He does fall into an elevated risk category secondary to this history and a period of monitoring is certainly appropriate It appears the Effexor was a little too activating which might be partly secondary to the dose as he is antidepressant zachary however, given the anxious quality to his presentation and in the setting of long-standing caffeine abuse and tendency to overwork and overdue, a more calming antidepressant might be more directly therapeutic and will discontinue the Effexor and substitute sertraline 50 mg daily. Common risks and benefits were reviewed and patient was accepting of the intervention. Brief intervention in counseling for smoking cessation provided. Patient presently contemplative regarding cessation but acknowledges that the patch has so far ameliorated cravings here in the hospital. Patient's potassium was 3.2 in the ER and we will repeat BMP tomorrow to see if supplementation is necessary Patient's cannabis abuse is long-standing. Abstinence will be recommended. -caffeine reduction recommended -family meeting with -ensure guns secured prior to dischage 08/28 -Mood quickly recompensating -Received and tolerated first dose of Zoloft today. Will defer further titration for now -Denies suicidal ideation -Repeat BMP today shows potassium normalized -Family meeting with scheduled for tomorrow -302 will be up on the at 2044. Inventory Assets Strengths: Patient is now willing to accept help. 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 Review of Systems Sleep Information Total Hours of Sleep: 6.75 Sleep Comments: pt on q-15 minute checks Meal Information Percent Meal Consumed - Breakfast: 100 Percent Meal Consumed - Lunch: 100 Percent Meal Consumed - Dinner: 100 Subjective Subjective Patient was seen & assessed and interval progress reviewed with Treatment Team. Per staff patient doing well here on the unit. Participating actively in groups. Repeat BMP today shows that potassium has normalized. Family meeting with scheduled for tomorrow. He rated his mood as 10 out of 10 and denied suicidal ideation last evening. This morning he reports that he slept very well last night. Appetite has been good here. He describes dramatically improving hopefulness and planning to take a trip to visit his son following discharge. "I never take time to do things like that and I realize I should." He had his first dose of Zoloft this morning and so far tolerating well. He reports improving anxiety and mood. He denies any fatalistic thoughts today. Physical Exam Psychiatric Orientation: alert, oriented x 3 and cooperative Apperance: appropriately dressed and appeared stated age Eye Contact: good eye contact Motor Behavior: steady gait and station Speech: normal rate/rhythm/volume of speech Affect: euthymic affect and mood congruent with affect Mood: no depressed mood Thought Process: goal directed thought process Thought Content: reality based without delusions Suicidal Thoughts: denies suicidal thoughts (Acknowledges suicidal thoughts prior to admission. Denies active suicidal thoughts or plan actively) Homicidal Thoughts: denies homicidal thoughts Hallucinations: no auditory hallucinations, no visual hallucinations and no tactile hallucinations Cognition: recent memory grossly intact and remote memory grossly intact Estimated Intelligence: average estimated intelligence (For level of education) Insight: + fair insight Judgement: + fair judgement Vital Signs (Past 24 Hours) Last Vital Signs Temp 36.7 C 08/28/18 06:52 Pulse 74 08/28/18 06:52 Resp 16 08/28/18 06:52 BP 119/73 08/28/18 06:52 Pulse Ox 97 08/27/18 01:40 Results & Data Laboratory Results Laboratory Results - last 24 hr 08/28/18 06:19 Sodium 142 Potassium 3.9 D Chloride 111 H Carbon Dioxide 28 Anion Gap 3.0 BUN 12 Creatinine 0.90 Est Cr Clr Drug Dosing 101.8 Est GFR ( Amer) 116.6 Est GFR (Non-Af Amer) 100.6 BUN/Creatinine Ratio 13.4 Glucose 94 Calcium 8.5 Current Inpatient Medications Current Inpatient Medications: Current Inpatient Medications Acetaminophen (Tylenol) 650 mg PO Q4H PRN PRN Reason: Headache or Minor Fever Stop: 09/26/18 01:13 Al Hydrox/Mg Hydrox/Simethicone (Maalox) 30 ml PO Q4H PRN PRN Reason: GI Upset Stop: 09/26/18 01:13 Bismuth Subsalicylate (Kaopectate) 15 ml PO PRN PRN PRN Reason: Loose Stool Stop: 09/26/18 01:13 Hydroxyzine HCl (Vistaril) 50 mg PO HSZ PRN PRN Reason: Insomnia Stop: 09/26/18 01:13 Hydroxyzine HCl (Vistaril) 25 mg PO Q4H PRN PRN Reason: Anxiety Stop: 09/26/18 01:13 Magnesium Hydroxide (Milk Of Magnesia) 30 ml PO DAILY PRN PRN Reason: Heartburn Stop: 09/26/18 01:13 Miscellaneous (Remove Nicoderm Patch) 1 ea N/A HS SUSANNE Stop: 09/25/18 20:59 Last Admin: 08/27/18 21:13 Dose: Not Given Documented by: Nicotine (Nicoderm Cq) 21 mg TD QAM SUSANNE Stop: 09/26/18 08:59 Last Admin: 08/28/18 08:44 Dose: 21 mg Documented by: Nicotine Polacrilex (Nicorette 2mg) 1 piece MT UD PRN PRN Reason: Nicotine Withdrawal Stop: 09/26/18 01:13 Sertraline HCl (Zoloft) 50 mg PO QAM SUSANNE Stop: 09/27/18 08:59 Last Admin: 08/28/18 08:44 Dose: 50 mg Documented by: Sodium Chloride ([place] Nasal) 1 - 2 sprays NA PRN PRN PRN Reason: Nasal Dryness/Congestion Stop: 09/26/18 01:13 Post Discharge Appointments Primary Care Physician Name Of Family Doctor: [facility] - Aurelia Medina PA-C Therapist Name of Therapist: Denies Tablet Machine Operator Name of Tablet Machine Operator: Denies CPT Code CPT Code 53336
[2018-08-29] MEDS: SERTRALINE HCL 50 MG TABLET PO SCH (09:16)
[2018-08-29] MEDS: NICOTINE 21 MG/24 HR TDSY TD SCH (09:16)
--- NOTE | 2018-08-29 12:14 | Psychiatric Progress Note ---
Date of Service August 29, 2018 Impression / Recommendations Jarvis Ochoa is a 47-year-old gentleman without prior psychiatric history who presented on a 302 involuntary admission after making suicidal threats to family which he does not directly endorse at time of psychiatric admission but does acknowledge times of passive wish, suicidal fantasy, and significant psychosocial stressors. Pt tolerating adjustment from venlafaxine ER to sertraline and feels mood has improved. Pt is scheduled for a family meeting with his this afternoon. Based on conversation regarding events leading to admission, it is likely that may have additional concerns or needs to discuss. Inpatient psychiatric admission remains medically necessary as patient is at risk of harm to self if discharged prematurely without appropriate involvement of outpatient supports and development of a safety plan. Diagnosis: MDD, single episode, severe, without psychosis, with anxious distress; cannabis use disorder (1) Depression with suicidal ideation: Patient was admitted on a 302 involuntary commitment. He is now accepting of care. He will be maintained on suicide checks and expected to participate in unit programming as appropriate Psychoeducation provided to patient regarding effects of chronic and introduced of stress notion that he will likely need to find a better balance, particularly as he is aging and hopefully he will be accepting of outpatient psychotherapy referral Presently patient is denying active or ongoing suicidal ideation or intent and able to convincingly contract for safety on the unit. He does have a history of suicide attempts as a young child and more recent suicidal fantasy without acts of furtherance. He does fall into an elevated risk category secondary to this history and a period of monitoring is certainly appropriate It appears the Effexor was a little too activating which might be partly secondary to the dose as he is antidepressant zachary however, given the anxious quality to his presentation and in the setting of long-standing caffeine abuse and tendency to overwork and overdue, a more calming antidepressant might be more directly therapeutic and will discontinue the Effexor and substitute sertraline 50 mg daily. Common risks and benefits were reviewed and patient was accepting of the intervention. Brief intervention in counseling for smoking cessation provided. Patient presently contemplative regarding cessation but acknowledges that the patch has so far ameliorated cravings here in the hospital. Patient's potassium was 3.2 in the ER and we will repeat BMP tomorrow to see if supplementation is necessary Patient's cannabis abuse is long-standing. Abstinence will be recommended. -caffeine reduction recommended -family meeting with -ensure guns secured prior to dischage 08/28 -Mood quickly recompensating -Received and tolerated first dose of Zoloft today. Will defer further titration for now -Denies suicidal ideation -Repeat BMP today shows potassium normalized -Family meeting with scheduled for tomorrow -302 will be up on the at 2044. 08/29 - Continue sertraline at 50mg, consider need for further titration on an outp atient basis - Denies SI - Family meeting with scheduled for this afternoon - Continue to encourage development of healthy and effective coping strategies Inventory Assets Strengths: Patient is now willing to accept help. 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 with his and 2 children ages 8 and 14. He has no pertinent psychiatric or medical history. He was admitted on 08/27/18 01:14 on a 302 involuntary commitment for suicidal ideation. Chief Complaint "I'm awesome. No really!" Review of Systems Notes Constitutional: reports improvement in sleep Cardiovascular: denied Respiratory: denied Gastrointestinal: improved appetite Neurological: denied Psychiatric: denies symptoms other than stated above Total of at least 10 systems reviewed, pertinent positives as above and in HPI. Sleep Information Total Hours of Sleep: 4.5 Sleep Comments: pt conversing with roommate at beginning of shift. pt on q-15 minute checks Meal Information Percent Meal Consumed - Breakfast: 100 Percent Meal Consumed - Lunch: 100 Percent Meal Consumed - Dinner: 100 Subjective Subjective Patient was seen & assessed and interval progress reviewed with Treatment Team. Staff reports the patient rated himself a 10/10 and "happy" last evening. He is scheduled for a family meeting with his this afternoon. Pt was seen today to assess progress since admission. Pt states he is doing well and is glad that he has been receiving treatment on the unit. Pt shares with this provider the events leading to his admission. He admits that he did not feel in control of his actions on venlafaxine, and feels the sertraline is much improved for him. He reports improvement in sleep and appetite since his admission. Pt recognizes the need to prioritize his mental health needs, feeling he would benefit from visiting his children more often and taking time for himself. He is anticipating a meeting with his this afternoon, but seems to imply that there is a possibility they may decide to separate for a time. Pt feels his may be resentful of his need to devote more time toward what makes him happy. Pt denies SI, and feels his mood has improved drastically. He agrees that it is important to ensure this improvement is consistent, especially following the meeting. Pt denies other needs or concerns today. Physical Exam Psychiatric Orientation: alert, oriented x 3 and cooperative Apperance: appropriately dressed and appropriately groomed Eye Contact: good eye contact Motor Behavior: steady gait and station and no abnormal motor movements Speech: normal rate/rhythm/volume of speech Affect: euthymic affect Mood: no depressed mood and no anxious mood "I'm awesome. I feel a lot better." Thought Process: goal directed thought process and clear/coherent thought process Thought Content: reality based without delusions Suicidal Thoughts: denies suicidal thoughts and denies suicidal plan Homicidal Thoughts: denies homicidal thoughts Hallucinations: no auditory hallucinations and no visual hallucinations Cognition: remote memory grossly intact, attention grossly intact and language grossly intact Estimated Intelligence: consistent with education level Insight: + fair insight Judgement: + fair judgement Vital Signs (Past 24 Hours) Last Vital Signs Temp 36.8 C 08/29/18 07:00 Pulse 72 08/29/18 07:01 Resp 18 08/29/18 07:00 BP 124/77 08/29/18 07:01 Pulse Ox 97 08/27/18 01:40 Results & Data Current Inpatient Medications Current Inpatient Medications: Current Inpatient Medications Acetaminophen (Tylenol) 650 mg PO Q4H PRN PRN Reason: Headache or Minor Fever Stop: 09/26/18 01:13 Al Hydrox/Mg Hydrox/Simethicone (Maalox) 30 ml PO Q4H PRN PRN Reason: GI Upset Stop: 09/26/18 01:13 Bismuth Subsalicylate (Kaopectate) 15 ml PO PRN PRN PRN Reason: Loose Stool Stop: 09/26/18 01:13 Hydroxyzine HCl (Vistaril) 50 mg PO HSZ PRN PRN Reason: Insomnia Stop: 09/26/18 01:13 Hydroxyzine HCl (Vistaril) 25 mg PO Q4H PRN PRN Reason: Anxiety Stop: 09/26/18 01:13 Magnesium Hydroxide (Milk Of Magnesia) 30 ml PO DAILY PRN PRN Reason: Heartburn Stop: 09/26/18 01:13 Miscellaneous (Remove Nicoderm Patch) 1 ea N/A HS SUSANNE Stop: 09/25/18 20:59 Last Admin: 08/28/18 21:25 Dose: Not Given Documented by: Nicotine (Nicoderm Cq) 21 mg TD QAM SUSANNE Stop: 09/26/18 08:59 Last Admin: 08/29/18 09:16 Dose: 21 mg Documented by: Nicotine Polacrilex (Nicorette 2mg) 1 piece MT UD PRN PRN Reason: Nicotine Withdrawal Stop: 09/26/18 01:13 Sertraline HCl (Zoloft) 50 mg PO QAM SUSANNE Stop: 09/27/18 08:59 Last Admin: 08/29/18 09:16 Dose: 50 mg Documented by: Sodium Chloride ([place] Nasal) 1 - 2 sprays NA PRN PRN PRN Reason: Nasal Dryness/Congestion Stop: 09/26/18 01:13 Post Discharge Appointments Primary Care Physician Name Of Family Doctor: [facility] - Aurelia Medina PA-C Primary Care Date of Appointment with PCP: 09/01/18 Time of Appointment with PCP: 4:00 p.m. Provider Appointment Comment: [address] [facility], [address], [place] [address] Therapist Name of Therapist: Konstantinies Weigh Tank Operator Name of Weigh Tank Operator: Yosef Contact Information Discharge Discharge Address: [address] [place] [id number] CPT Code CPT Code 63609
[2018-08-30] MEDS: SERTRALINE HCL 50 MG TABLET PO SCH (08:33)
[2018-08-30] MEDS: NICOTINE 21 MG/24 HR TDSY TD SCH (08:34)
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
[2018-08-30] MEDS ORDERED: DESTROY THIS MEDICATION ONE (12:46)
== END 2018-08-30 14:38 | disposition home or self-care (01) | DRG 885 ==
LOC: ED 19:58 → 3S 08-27 01:14